=== PATIENT | female | born 1935 | race Caucasian/White ===

== ENCOUNTER 2017-10-20 11:01 | Emergency (ER) | payer OTHER, MEDICARE ==
[2017-10-20] MEDS ORDERED: HYDROmorphONE/DILAUDID 2 MG/ML INJ IVP ONE (11:17)
[2017-10-20] MEDS ORDERED: NS 1,000 ML IV ONE ×2 (11:17→12:05)
[2017-10-20] MEDS ORDERED: ONDANSETRON 4 MG/2 ML VIAL IVP ONE (11:17)
--- NOTE | 2017-10-20 11:21 | EDPHY ---
H & P Time Seen by Provider: 10/20/17 11:13 HPI/ROS: CHIEF COMPLAINT: Right flank pain HISTORY OF PRESENT ILLNESS: Patient is an 82-year-old female who comes to the emergency department complaining of right flank pain. It begins in her right CVA and radiates to her right groin. She states that she has never felt pain like this before. It is constant but tends to increase and decrease in waves. She has not noticed any hematuria. No fever. It began gradually last night was severe this morning. She was having dry heaves but did not vomit. No diarrhea. No chest pain or shortness of breath. She does have a history of an abdominal aortic aneurysm. She also tells me that she does not know and does not wish to know much of her medical history because she prefers to leave it to her doctor. She moved here from [facility] 3 weeks ago. REVIEW OF SYSTEMS: Constitutional: denies: chills, fever, recent illness, recent injury EENTM: denies: blurred vision, double vision, nose congestion Respiratory: denies: cough, shortness of breath Cardiac: denies: chest pain, irregular heart rate, lightheadedness, palpitations Gastrointestinal/Abdominal: See HPI Genitourinary: denies: dysuria, frequency, hematuria, pain Musculoskeletal: denies: joint pain, muscle pain Skin: denies: lesions, rash, jaundice, bruising Neurological: denies: headache, numbness, paresthesia, tingling, dizziness, weakness Hematologic/Lymphatic: denies: blood clots, easy bleeding, easy bruising Immunologic/allergic: denies: HIV/AIDS, transplant EXAM: GENERAL: Well-appearing, well-nourished and in no acute distress. HEAD: Atraumatic, normocephalic. EYES: Pupils equal round and reactive to light, extraocular movements intact, sclera anicteric, conjunctiva are normal. ENT: TMs normal, nares patent, oropharynx clear without exudates. Moist mucous membranes. NECK: Normal range of motion, supple without lymphadenopathy or JVD. LUNGS: Breath sounds clear to auscultation bilaterally and equal. No wheezes rales or rhonchi. HEART: Regular rate and rhythm without murmurs, rubs or gallops. ABDOMEN: Soft, nontender, normoactive bowel sounds. No guarding, no rebound. No masses appreciated. BACK: No CVA tenderness, no spinal tenderness, step-offs or deformities EXTREMITIES: Normal range of motion, 1+ edema. No clubbing or cyanosis. NEUROLOGICAL: Cranial nerves II through XII grossly intact. Normal speech, normal gait. 5/5 strength, normal movement in all extremities, normal sensation PSYCH: Normal mood, normal affect. SKIN: Warm, dry, normal turgor, no visible rashes or lesions. Source: Patient Exam Limitations: No limitations - Medical/Surgical History Hx Asthma: No Hx Chronic Respiratory Disease: No Hx Diabetes: No Hx Cardiac Disease: No Hx Renal Disease: No Hx Cirrhosis: No Other PMH: Aortic aneurysm, hypertension, type 2 diabetes - Family History Significant Family History: No pertinent family hx - Social History Alcohol Use: Sober Drug Use: None Constitutional: Initial Vital Signs Temperature (C) 36.6 C 10/20/17 11:22 Heart Rate 71 10/20/17 11:22 Respiratory Rate 16 10/20/17 11:22 Blood Pressure 149/78 H 10/20/17 11:22 O2 Sat (%) 91 L 10/20/17 11:22 O2 Delivery Mode Room Air O2 (L/minute) 2 Allergies/Adverse Reactions: No Known Allergies Allergy (Unverified 10/20/17 11:29) Home Medications: Medication Instructions Recorded Atenolol 10/20/17 Digoxin 10/20/17 Hydrocodone/APAP 5/325 [[place] 1 - 2 tab PO Q4H PRN #10 tab 10/20/17 5/325] Nabumetone 10/20/17 Ondansetron Odt [Zofran Odt 4 mg 4 mg PO Q4 PRN #20 tab 10/20/17 (RX)] Repaglinide 10/20/17 Tamsulosin HCl [Flomax] 0.4 mg PO DAILY #10 cap 10/20/17 Medical Decision Making - Diagnostics Imaging Results: Imaging Impressions Abdomen/Pelvis CT 10/20/17 11:17 Impression: 1. 5 mm radiodense structure suggesting stone at the right ureterovesical junction with severe obstructive uropathy with probable forniceal rupture. 2. Infrarenal abdominal aortic aneurysm measuring up to 4.5 cm in maximal AP diameter. 3. Indeterminate left renal mass which could represent a proteinaceous/ hemorrhagic cyst or mass. Renal ultrasound could be performed for further evaluation. 4. Additional findings as above. Findings discussed with Vinod Andrade on 10/20/2017 at 1301 hours. Attention: This CT examination is specifically designed to evaluate patients who are clinically suspected of having acute obstructive uropathy. This examination does not use radiographic contrast and provides only a limited evaluation of the abdomen, pelvis and retroperitoneum. If there is further clinical suspicion for pathological conditions other than obstructive uropathy, a complete CT evaluation of the abdomen and pelvis utilizing intravenous and enteric contrast should be considered. Imaging: Discussed imaging studies w/ pre planning advisor Radiologist ED Course/Re-evaluation: 1:15 p.m. we discussed patient's CT and lab results. She is feeling much more comfortable. She is eager to go home. She has been hydrated. She is tolerating p.o.. I will prescribe her pain and nausea medications as well as Flomax. She is happy with this plan and declines further workup or testing. I will also have her follow up with Urology. We discussed straining her urine and testing stone. She was already aware of the aortic aneurysm and will compared to previous CT scans with her primary doctor medical. She is not sure about the left ovarian cyst versus mass and will ask her doctor about this as well. I recommended ultrasound within 1 month if it is new. Differential Diagnosis: Partial list of the Differential diagnosis considered include but were not limited to; kidney stone, urinary tract infection, aneurysm and although unlikely based on the history and physical exam, I also considered dissection, abscess. I discussed these differential diagnoses and the plan with the patient as well as the usual and expected course. The patient understands that the diagnosis is provisional and that in medicine we are not always correct and that further workup is often warranted. Usual and customary warnings were given. All of the patient's questions were answered. The patient was instructed to return to the emergency department should the symptoms at all worsen or return, otherwise to followup with the physician as we discussed. - Data Points Laboratory Results: Laboratory Results 10/20/17 12:03 10/20/17 10/20/17 12:03 11:46 WBC 10.86 10^3/uL H 10^3/uL (3.80-9.50) RBC 4.79 10^6/uL 10^6/uL (4.18-5.33) Hgb 15.5 g/dL g/dL (12.6-16.3) Hct 44.7 % % (38.0-47.0) MCV 93.3 fL fL (81.5-99.8) MCH 32.4 pg pg (27.9-34.1) MCHC 34.7 g/dL g/dL (32.4-36.7) RDW 13.3 % % (11.5-15.2) Plt Count 210 10^3/uL 10^3/uL (150-400) MPV 10.5 fL fL (8.7-11.7) Neut % (Auto) 79.6 % H % (39.3-74.2) Lymph % (Auto) 15.0 % % (15.0-45.0) [place] % (Auto) 4.0 % L % (4.5-13.0) Eos % (Auto) 0.4 % L % (0.6-7.6) Baso % (Auto) 0.6 % % (0.3-1.7) Nucleat RBC Rel Count 0.0 % % (0.0-0.2) Absolute Neuts (auto) 8.65 10^3/uL H 10^3/uL (1.70-6.50) Absolute Lymphs (auto) 1.63 10^3/uL 10^3/uL (1.00-3.00) Absolute Monos (auto) 0.43 10^3/uL 10^3/uL (0.30-0.80) Absolute Eos (auto) 0.04 10^3/uL 10^3/uL (0.03-0.40) Absolute Basos (auto) 0.07 10^3/uL 10^3/uL (0.02-0.10) Absolute Nucleated RBC 0.00 10^3/uL 10^3/uL (0-0.01) Immature Gran % 0.4 % % (0.0-1.1) Immature Gran # 0.04 10^3/uL 10^3/uL (0.00-0.10) POC Sodium 142 mEq/L mEq/L (135-145) POC Potassium 4.5 mEq/L mEq/L (3.3-5.0) POC Chloride 103.0 mEq/L mEq/L (97-110) POC Total CO2 27 mEq/L mEq/L (22-31) POC BUN 14 mg/dL mg/dL (7-23) POC Creatinine 1.5 mg/dL H mg/dL (0.6-1.0) POC Glucose 159 mg/dL H mg/dL (70-100) POC Calcium 10.0 mg/dL mg/dL (8.5-10.4) POC Total Bilirubin 0.7 mg/dL mg/dL (0.1-1.4) POC AST 50 IU/L H IU/L (14-46) POC ALT 31 IU/L IU/L (9-52) POC Alk Phosphatase 65 IU/L IU/L (38-126) POC Total Protein 8.1 g/dL g/dL (6.3-8.2) POC Albumin 3.9 g/dL g/dL (3.5-5.0) Medications Given: Discontinued Medications Hydromorphone HCl (Dilaudid) 0.5 mg IVP EDNOW ONE Stop: 10/20/17 11:18 Last Admin: 10/20/17 12:09 Dose: 0.5 mg Sodium Chloride (Ns) 1,000 mls @ 0 mls/hr IV EDNOW ONE; Wide Open PRN Reason: Protocol Stop: 10/20/17 12:06 Last Admin: 10/20/17 12:00 Dose: 1,000 mls Ondansetron HCl (Zofran) 4 mg IVP EDNOW ONE Stop: 10/20/17 11:18 Last Admin: 10/20/17 12:09 Dose: 4 mg Tamsulosin HCl (Flomax) 0.4 mg PO EDNOW ONE Stop: 10/20/17 13:20 Last Admin: 10/20/17 13:33 Dose: 0.4 mg Point of Care Test Results: Chemistry 10/20/17 11:46 POC Sodium 142 mEq/L mEq/L (135-145) POC Potassium 4.5 mEq/L mEq/L (3.3-5.0) POC Chloride 103.0 mEq/L mEq/L (97-110) POC Total CO2 27 mEq/L mEq/L (22-31) POC BUN 14 mg/dL mg/dL (7-23) POC Creatinine 1.5 mg/dL H mg/dL (0.6-1.0) POC Glucose 159 mg/dL H mg/dL (70-100) POC Calcium 10.0 mg/dL mg/dL (8.5-10.4) POC Total Bilirubin 0.7 mg/dL mg/dL (0.1-1.4) POC AST 50 IU/L H IU/L (14-46) POC ALT 31 IU/L IU/L (9-52) POC Alk Phosphatase 65 IU/L IU/L (38-126) POC Total Protein 8.1 g/dL g/dL (6.3-8.2) POC Albumin 3.9 g/dL g/dL (3.5-5.0) Urine Dip Collection Date 10/20/17 Collection Time 11:39 Specific [place] (1.002-1.030) 1.020 PH (5.0-7.5) 7.5 Leukocytes (Negative) 1+ Nitrites (Negative) Negative Protein (Negative) 2+ Glucose (Negative) Negative Ketones (Negative) Negative Urobilnogen (0.2-1.0 EU) 0.2 Bilirubin (Negative) Negative Blood (Negative) Trace Departure - Departure Disposition: Home, Routine, Self-Care Clinical Impression: Kidney stone on right side Condition: Fair Instructions: Kidney Stones (ED) Additional Instructions: You have a 5 mm stone on the right side. Strain urine to see if he can catch it and taken to the urologist. You also have a 2 cm cyst versus mass on your left kidney that will need follow-up ultrasound as discussed. Referrals: NONE *PRIMARY CARE P,. [Primary Care Provider] - As per Instructions Los Plasencia MD [Medical Doctor] - As per Instructions Gianfranco Antunez MD [Medical Doctor] - As per Instructions Prescriptions: Hydrocodone/APAP 5/325 [[place] 5/325] 1 - 2 tab PO Q4H PRN #10 tab PRN Reason: Pain, Moderate Ondansetron Odt [Zofran Odt 4 mg (RX)] 4 mg PO Q4 PRN #20 tab PRN Reason: Nausea & Vomiting Tamsulosin HCl [Flomax] 0.4 mg PO DAILY #10 cap
[2017-10-20 13:10] LABS: PLATELET COUNT 210 10^3/uL (150-400)
[2017-10-20] MEDS ORDERED: TAMSULOSIN HCL 0.4 MG CAP PO ONE (13:19)
[2017-10-20 13:59] VITALS: BP 111/56
== END 2017-10-20 14:00 | disposition home or self-care (01) ==
LOC: CED 11:01
DX: N20.0 Calculus of kidney (principal); E86.9 Volume depletion, unspecified; E11.9 Type 2 diabetes mellitus without complications; I10 Essential (primary) hypertension
CPT/HCPCS: 74176; 96361; 96374; 96375; 99285; J1170; J2405; 80053-PO

== ENCOUNTER → 2018-01-08 | Outpatient (CLI) | payer OTHER, MEDICARE | LOC: BHFA 08:30 | PROVIDERS: ATTEND Internal Medicine Cardiovascular Disease | DX: Z01.810 Encounter for preprocedural cardiovascular examination (principal); I25.10 Atherosclerotic heart disease of native coronary artery without angina pectoris | CPT/HCPCS: 78452; 93017; 93306; A9500; J2785 ==

== ENCOUNTER 2018-01-24 09:56 | Observation (INO) | payer OTHER, MEDICARE ==
[2018-01-24] MEDS ORDERED: DIAZEPAM 5 MG TAB PO ONE (10:00)
[2018-01-24] MEDS ORDERED: diphenhydrAMINE 25 MG CAP PO ONE (10:00)
[2018-01-24] MEDS ORDERED: FAMOTIDINE 20 MG TAB PO ONE (10:00)
[2018-01-24] MEDS ORDERED: ASPIRIN EC 325 MG TAB PO ONE (10:00)
[2018-01-24] MEDS ORDERED: NS 1,000 ML IV ONE (10:00)
[2018-01-24 10:40] LABS: PLATELET COUNT 205 10^3/uL (150-400)
[2018-01-24] MEDS ORDERED: LIDOCAINE 1% 300 MG/30 ML SDV ONE (10:45)
[2018-01-24] MEDS ORDERED: fentaNYL 100 MCG/2 ML INJ ONE (10:46)
[2018-01-24] MEDS ORDERED: MIDAZOLAM 2 MG/2 ML VIAL ONE (10:46)
[2018-01-24] MEDS ORDERED: IOPAMIDOL (ISOVUE-370) 150 ML BTL IV ONE (10:46)
[2018-01-24 10:49] LABS: INR 1.03 (0.83-1.16); PROTIME(PATIENT) 13.7 SEC (12.0-15.0)
[2018-01-24] MEDS ORDERED: CLOPIDOGREL BISULFATE 75 MG TAB ONE (11:20)
[2018-01-24] MEDS ORDERED: BIVALIRUDIN 250 MG/5 ML VIAL IV ONE (11:48)
[2018-01-24] MEDS ORDERED: ATROPINE SULFATE 1 MG/10 ML SYR ONE (12:00)
[2018-01-24] MEDS ORDERED: NITROGLYCERIN 1,500 MCG/15 ML VIAL MISC ONE (12:00)
[2018-01-24] MEDS ORDERED: EPINEPHrine 1 MG/10 ML SYR IVP ONE (12:00)
[2018-01-24] MEDS ORDERED: ONDANSETRON 4 MG/2 ML VIAL IVP PRN (12:45)
[2018-01-24] MEDS ORDERED: LORazepam 2 MG/ML INJ IVP PRN (12:45)
[2018-01-24] MEDS ORDERED: OXYCODONE/APAP 5/325 TAB PO PRN (12:45)
[2018-01-24] MEDS ORDERED: HYDROCODONE/APAP 5/325 TAB PO PRN (12:45)
[2018-01-24] MEDS ORDERED: NITROGLYCERIN 0.4 MG BTL SL PRN (12:45)
[2018-01-24] MEDS ORDERED: TEMAZEPAM 15 MG CAP PO PRN (12:45)
[2018-01-24] MEDS ORDERED: ATROPINE SULFATE 1 MG/10 ML SYR IVP PRN (12:45)
[2018-01-24] MEDS ORDERED: ACETAMINOPHEN/ASA/CAFFEINE 1 EACH TAB PO PRN (12:48)
--- NOTE | 2018-01-24 13:37 | CPIP ---
DATE OF PROCEDURE: 01/24/2018 INDICATIONS FOR PROCEDURE: Positive stress test, chest pain. PROCEDURES: 1. Nonselective right groin sheathogram. 2. Selective coronary angiography and left heart catheterization with left ventriculogram. 3. Percutaneous intervention of mid LAD utilizing Synergy 2.5 x 38 mm drug-eluting stent and 3.0 x 1 6 mm drug-eluting stent. HISTORY: Briefly, this is an 82-year-old female with history of recent chest pain. The patient had a positive stress test and worsening anginal like symptoms as an outpatient. At this time, the patie nt consented for cardiac catheterization. DESCRIPTION OF PROCEDURE: After informed consent was obtained, the patient was brought to [facility] where the right groin was prepped and draped in sterile fashion. Using lidocaine, a s hort 6-Wolof sheath in the right common femoral artery verified angiographically. Through this 6-Fr ench sheath, a JL4 catheter was advanced to left coronary artery. Images of the left coronary artery revealed normal left main. Left circumflex had mild 20% to 30% plaque disease with small marginal 1 artery coming off proximally. The distal marginal circumflex artery terminates to a marginal 2 ann ry which had 30% disease in its midportion. The LAD was a long vessel which had subtotal occlusion i n its midportion with [id number] collateralization. There was a moderate to large diagonal artery coming off proximally which had mild plaque disease in its course. The distal LAD, however, appeared to be patent and free of disease. After the images were obtained, the JR4 catheter was removed. A JR4 catheter was advanced to the right coronary artery. Images of the right coronary artery revealed normal ostial RCA with slightly angulated takeoff. There was 30% to 40% disease in its proximal mid portion of the RCA. The distal RPD and RPLS had mild plaque disease but no significant obstruction. After images were obtained, the JR4 catheter was then removed. The pigtail catheter was advanced t o the left ventricle LVEDP 15 mmHg. Left ventriculogram in the OVIEDO position showed EF of 65% with no wall motion abnormalities. There was no gradient between the LV and the aorta. Pigtail catheter wa s then removed over an 0.035 wire. Intervention report at this time, the patient has been administer ed 600 mg Plavix p.o. and started on Angiomax bolus and drip. Utilizing the EBU 3.5 guide catheter, left coronary artery selectively engaged. We decided that the LAD appeared to be a subtotal [employer]IST. Th us, we would use a 300 cm Fielder XT wire as our initial choice. The Fielder wire was then advanced and through careful manipulation was carefully able to manipulate through the lesion and placed dista l in the LAD. Once this was performed and confirmed angiographically, we then placed 2.0 x 12 balloo n was then advanced and was placed into the proximal portion of the lesion and inflated to 12 atmosph eres. After deflation this was then gently advanced again through some effort into the proximal mid portion of the vessel and inflated to 12 atmospheres. This was then advanced 1 more time further to this area and inflated to 12 atmospheres. After this performed, the balloon was then deflated and wi thdrawn and angiographic images were obtained, which showed improved patency to the LAD. We instead decided to utilize a 2.5 x 15 balloon then with multiple sequential inflations across the LAD lesion starting at the distal point of the lesion back into the proximal portion of the mid LAD. Multiple s equential inflations of 12-14 atmospheres occurred across this area. After this was performed, angio graphy was obtained, which show excellent patency of the balloon of the PTCA area. We decided to pro ceed with stenting this vessel then with a Synergy 2.5 x 38 mm drug-eluting stent. This was deployed successfully in the mid distal LAD at 14 atmospheres. After deployment, we then proceeded with plac ement of 3.0 x 16 Synergy drug-eluting stent in an overlap fashion in the proximal mid LAD. After th is was performed, the 3.0 x 16 balloon was then utilized to post dilate all the overlapped area as we ll as the mid distal area of the 38 stent. After this was performed, angiography was obtained, which were obtained after 200 mcg of nitroglycerin were given, which showed excellent patency of the stent ed regions with no evidence of dissection or perforation. The wire was pulled back. The guide missy ter was removed. The guidewire in the right groin was sutured in place. Patient tolerated the proce dure well with no complications. IMPRESSION: 1. Successful percutaneous intervention of subtotaled mid LAD occlusion. 2. Mild noncritical disease of the circumflex and right coronary artery. 3. Normal ejection fraction. PLAN: The patient will have her sheath DC'd 2 hours time. She will be admitted overnight. If clini ar stable, will be discharged within 24 hours on aspirin products. /[id number]/MODL
--- NOTE | 2018-01-24 15:21 | CPEKG ---
Test Reason : OPEN Blood Pressure : / mmHG Vent. Rate : 050 BPM Atrial Rate : 050 BPM P-R Int : 231 ms QRS Dur : 084 ms QT Int : 397 ms P-R-T Axes : -58 -66 019 degrees QTc Int : 362 ms Sinus or ectopic atrial rhythm Prolonged NV interval Left atrial enlargement Left ventricular hypertrophy Inferior infarct, old Anterior infarct, old Confirmed by Master Duque ([id number]) on 01/24/2018 3:20:41 PM Referred By: Confirmed By:Master Duque
--- NOTE | 2018-01-24 15:23 | CPEKG ---
Test Reason : OPEN Blood Pressure : / mmHG Vent. Rate : 042 BPM Atrial Rate : 042 BPM P-R Int : 283 ms QRS Dur : 091 ms QT Int : 451 ms P-R-T Axes : -60 -60 -01 degrees QTc Int : 377 ms Sinus or ectopic atrial bradycardia Prolonged TN interval Probable left atrial enlargement lahb poor r wave progression Confirmed by Master Duque ([id number]) on 01/24/2018 3:23:16 PM Referred By: Confirmed By:Master Duque
[2018-01-24] MEDS ORDERED: NABUMETONE 500 MG TAB PO SCH (21:00)
[2018-01-24] MEDS: ASCORBIC ACID 500 MG TAB PO SCH (23:10)
[2018-01-25 03:40] LABS: PLATELET COUNT 187 10^3/uL (150-400)
--- NOTE | 2018-01-25 07:08 | PDCARPN ---
Cardiology Progress Note Chief Complaint: CP Assessment/Plan: Assessment: CP +stress test 90% LAD disease treated with PCI Plan: 01/25/18 07:06 Doing well No CP d/c home with plavix/ASA f/u 1-2 weeks outpatient CTA of AAA 01/25/18 07:07 Subjective: doing well Reviewed/Discussed With: multidisciplinary team Time Spent with Patient: greater than 25 minutes Time Spent with Patient: Greater than 25 minutes spent on this patients care, greater than 50% of time spent counseling, educating, and coordinating care regarding the above mentioned plan. Objective: Vital Signs (8 Hrs) Temp Pulse Resp BP Pulse Ox 01/25/18 03:22 36.9 C 65 16 117/65 92 01/24/18 23:18 37.1 C 63 16 146/71 H 93 Intake/Output (24 Hrs) 01/24/18 01/25/18 01/26/18 05:59 05:59 05:59 Intake Total 150 Output Total 400 Balance -250 Intake: Oral (ml) 150 Output: Urine (ml) 400 Bedpan 400 Other: Weight 72.6 kg Number of Voids Toilet 2 Result Diagrams: 01/25/18 03:01 01/25/18 03:01 - Physical Exam Constitutional: healthy appearing Eyes: PERRL Ears, Nose, Mouth, Throat: moist mucous membranes Cardiovascular: regular rate and rhythm Peripheral Pulses: 1+: femoral (R), femoral (L) Respiratory: clear to auscultate bilat Gastrointestinal: normoactive bowel sounds Genitourinary: no suprapubic tenderness Skin: no rashes Musculoskeletal: no muscular tenderness Neurologic: AAOx3 Psychiatric: cooperative ICD10 Worksheet Patient Problems: Problems Problem Status Onset Angina at rest Acute CAD (coronary artery disease), [place] coronary artery Acute - ICD10 Problem Qualifiers (1) Angina at rest (2) CAD (coronary artery disease), [place] coronary artery Qualifiers: [place] vs. transplanted heart: [place] heart Associated angina: with stable angina Qualified Code(s): I25.118 - Atherosclerotic heart disease of [place] coronary artery with other forms of angina pectoris
--- NOTE | 2018-01-25 07:21 | GDS ---
DIAGNOSIS: Coronary artery disease. HOSPITAL COURSE: Briefly, this is an 82-year-old female with a history of worsening chest pain as an outpatient who had a stress test, which was positive for ischemia. The patient underwent cardiac ca theterization, which showed 90% subtotal mid LAD. The patient underwent successful PCI of this vesse l with 2 drug-eluting stents. Postprocedure, the patient has done very well, has been denying any ch est pain. She has been ambulating without problems. The patient will be discharged home catherine elmore with her home medications including aspirin and Plavix. She will follow up with our office in 1-2 weeks' time. /[id number]/MODL
[2018-01-25] MEDS ORDERED: Herbals/Supplements -Info Only PO SCH (09:00)
[2018-01-25] MEDS ORDERED: ATENOLOL 50 MG TAB PO SCH (09:00)
[2018-01-25] MEDS: ASCORBIC ACID 500 MG TAB PO SCH ×2 (09:31→11:03)
[2018-01-25] MEDS: ASPIRIN EC 81 MG TAB PO SCH ×2 (09:31→11:03)
[2018-01-25] MEDS: PYRIDOXINE HCL 100 MG TAB PO SCH ×2 (09:31→11:03)
[2018-01-25] MEDS: CLOPIDOGREL BISULFATE 75 MG TAB PO SCH ×2 (09:31→11:02)
[2018-01-25] MEDS: MULTIVITAMINS 1 EACH TAB PO SCH ×2 (09:31→11:03)
[2018-01-25] MEDS ORDERED: DIGOXIN 250 MCG TAB PO SCH (10:00)
[2018-01-25 12:36] VITALS: BP 143/69
== END 2018-01-25 13:22 | disposition home or self-care (01) ==
LOC: FCATH 09:56 → F2W 12:45
PROVIDERS: ADMIT Internal Medicine Cardiovascular Disease; ATTEND Internal Medicine Cardiovascular Disease
PROC: B2151ZZ Fluoroscopy of Left Heart using Low Osmolar Contrast (ICD-10-PCS; principal; 2018-01-24)
PROC: 027034Z Dilation of Coronary Artery, One Artery with Drug-eluting Intraluminal Device, Percutaneous Approach (ICD-10-PCS; principal; 2018-01-24)
PROC: B2111ZZ Fluoroscopy of Multiple Coronary Arteries using Low Osmolar Contrast (ICD-10-PCS; principal; 2018-01-24)
PROC: 4A023N7 Measurement of Cardiac Sampling and Pressure, Left Heart, Percutaneous Approach (ICD-10-PCS; principal; 2018-01-24)
DX: I25.119 Atherosclerotic heart disease of native coronary artery with unspecified angina pectoris (principal)
CPT/HCPCS: 93005; 93458; C1725; C1769; C1874; C1887; C9607; J0583; J1644; J2250; J3010; Q9967; J0461

== ENCOUNTER 2018-03-28 15:43 | Emergency (ER) | payer OTHER, MEDICARE ==
--- NOTE | 2018-03-28 16:04 | EDPHY ---
H & P Time Seen by Provider: 03/28/18 15:51 HPI/ROS: CHIEF COMPLAINT: Chest pain HISTORY OF PRESENT ILLNESS: The patient is an 82-year-old female who comes to the emergency department complaining of sharp chest pain that she has had since January. She states that in January she had [address] Duque. Ever since that time she has had sharp chest pain. She is on digoxin and Plavix and aspirin. She noticed yesterday that the pain radiated up to her left anterior neck. It is not done this before. Today that symptom has resolved. She denies shortness of breath. No nausea vomiting. No diaphoresis. It is not worsened by exertion. She was at rest when the symptoms worsened yesterday. They persisted for about 8 hr until she went to bed and this morning she was back to her baseline pain. She does have AAA that is being monitored. She had a annual CT scan Sunday that revealed that it is stable at 4.6 cm. No abdominal pain. No pulsatile mass. No tearing or ripping sensation. Severity: Moderate Modifying factors: None REVIEW OF SYSTEMS: Constitutional: denies: chills, fever, recent illness, recent injury EENTM: denies: blurred vision, double vision, nose congestion Respiratory: denies: cough, shortness of breath Cardiac: See HPI Gastrointestinal/Abdominal: denies: abdominal pain, diarrhea, nausea, vomiting, blood streaked stools Genitourinary: denies: dysuria, frequency, hematuria, pain Musculoskeletal: denies: joint pain, muscle pain Skin: denies: lesions, rash, jaundice, bruising Neurological: denies: headache, numbness, paresthesia, tingling, dizziness, weakness Hematologic/Lymphatic: denies: blood clots, easy bleeding, easy bruising Immunologic/allergic: denies: HIV/AIDS, transplant 10 systems reviewed and negative except as noted EXAM: GENERAL: Well-appearing, joking, sarcastic, well-nourished and in no acute distress. HEAD: Atraumatic, normocephalic. EYES: Pupils equal round and reactive to light, extraocular movements intact, sclera anicteric, conjunctiva are normal. ENT: TMs normal, nares patent, oropharynx clear without exudates. Moist mucous membranes. NECK: Normal range of motion, supple without lymphadenopathy or JVD. LUNGS: Breath sounds clear to auscultation bilaterally and equal. No wheezes rales or rhonchi. HEART: Regular rate and rhythm without murmurs, rubs or gallops. ABDOMEN: Soft, nontender, normoactive bowel sounds. No guarding, no rebound. No masses appreciated. BACK: No CVA tenderness, no spinal tenderness, step-offs or deformities EXTREMITIES: Normal range of motion, no pitting or edema. No clubbing or cyanosis. NEUROLOGICAL: Cranial nerves II through XII grossly intact. Normal speech, normal gait. 5/5 strength, normal movement in all extremities, normal sensation , normal reflexes PSYCH: Normal mood, normal affect. SKIN: Warm, dry, normal turgor, no visible rashes or lesions. Source: Patient Exam Limitations: No limitations - Medical/Surgical History Hx Asthma: No Hx Chronic Respiratory Disease: No Hx Diabetes: No Hx Cardiac Disease: No Hx Renal Disease: No Hx Cirrhosis: No Hx Alcoholism: No Hx HIV/AIDS: No Hx Splenectomy or Spleen Trauma: No Other PMH: Coronary artery disease, stents x2, Aortic aneurysm, hypertension, kidney stones - Family History Significant Family History: No pertinent family hx - Social History Smoking Status: Current every day smoker Alcohol Use: Sober Drug Use: None Constitutional: Initial Vital Signs Temperature (C) 36.5 C 03/28/18 15:50 Heart Rate 54 L 03/28/18 15:50 Respiratory Rate 20 03/28/18 15:50 Blood Pressure 147/77 H 03/28/18 15:50 O2 Sat (%) 96 03/28/18 15:50 O2 Delivery Mode Room Air Allergies/Adverse Reactions: No Known Allergies Allergy (Verified 03/29/18 11:00) Home Medications: Medication Instructions Recorded Acetaminophen/ASA/Caffeine 1 each PO DAILY PRN 01/23/18 [Excedrin Tablet (*)] Ascorbic Acid [Vitamin C 500 mg 500 mg PO BID 01/23/18 (*)] Atenolol [Tenormin 50 mg (*)] 50 mg PO DAILY 01/23/18 Digoxin [Lanoxin 250 mcg (RX)] 250 mcg PO DAILY10 01/23/18 Herbals/Supplements -Info Only 1 ea PO DAILY 01/23/18 Multivitamins [Multivitamin (*)] 1 each PO DAILY 01/23/18 Nabumetone [Relafen 500 mg (*)] 500 mg PO HS 01/23/18 Pyridoxine HCl [Vitamin B-6 100 mg 100 mg PO DAILY 01/23/18 (*)] rOPINIRole HCL [Requip 1mg (*)] 1 mg PO HS 01/23/18 Aspirin EC [Aspirin EC 81 mg (*)] 81 mg PO DAILY tab 01/25/18 Clopidogrel Bisulfate [Plavix (*)] 75 mg PO DAILY #30 tab 01/25/18 Rosuvastatin Calcium [Crestor] 03/28/18 Magnesium 03/29/18 Medical Decision Making - Diagnostics EKG Interpretation: An EKG obtained and was read and documented in trace view. Please see trace view for full reading and report. Sinus rhythm, no acute ischemic changes Imaging: Discussed imaging studies w/ grain commodity manager Radiologist ED Course/Re-evaluation: 5:[address] Calderon who evaluated the patient prior to the ER. He came by and reviewed the test results and spoke to the patient. He is in agreement that she can be discharged safely at this point from a cardiac standpoint. She will follow up with his clinic. 5:30 p.m. the patient's D-dimer has failed to result twice. We will sent to [facility]. I have a low suspicion for PE considering the duration of her symptoms. The patient does not wish to wait and wishes to go home. She understands the risks and benefits. We will call her with results. she understands that if it is positive I want her to come back for CT scan. She is not tachycardic or hypoxic which is reassuring. She is adamant about going home. 8:00 p.m. the patient's D-dimer has finally returned and is positive. There was significant delay because our point of care test failed twice and then there was a 2 hr delay waiting for a keno attendant. The patient eventually left A because she was waiting for the delivery of a washer and dryer. I spoke with her on the phone just now notified her that her test is positive and recommended she come back here for a CT angiogram. She states that she feels at her baseline health currently. She did agree to return. 9:00 p.m. I spoke with the patient again. She is worried about driving here at night. I encouraged her to get a taxi or have some one drive her but that I think it is important she have her test done tonight. She would prefer to wait till morning. We discussed risks and benefits of waiting. He is reassuring that she has had the symptoms for several months however her symptoms did seem worse yesterday. She is capable of making her own medical decisions and we discussed the risks and benefits thoroughly. I again emphasized that for her safety she should come back tonight have the testing done. Differential Diagnosis: Partial list of the Differential diagnosis considered include but were not limited to; chest wall pain, pleurisy, acute coronary disease and although unlikely based on the history and physical exam, I also considered pneumonia, dissection, PE. I discussed these differential diagnoses and the plan with the patient as well as the usual and expected course. The patient understands that the diagnosis is provisional and that in medicine we are not always correct and that further workup is often warranted. Usual and customary warnings were given. All of the patient's questions were answered. The patient was instructed to return to the emergency department should the symptoms at all worsen or return, otherwise to followup with the physician as we discussed. - Data Points Point of Care Test Results: CBC CBC Collection Date 03/28/18 CBC Collection Time 16:15 WBC 8.8 RBC 4.66 HGB 15.3 HCT 44.2 PLT 210 Neut # 4.4 Neut 50.2 LYMPH # 3.6 LYMPH 41.0 Other WBC # 0.8 Other WBC 8.8 MCV 94.8 Chemistry 03/28/18 03/28/18 16:25 16:23 POC Total Bilirubin 0.7 mg/dL mg/dL (0.1-1.4) POC GGT 17 IU/L IU/L (5-65) POC AST 34 IU/L IU/L (14-46) POC ALT 17 IU/L IU/L (9-52) POC Alk Phosphatase 82 IU/L IU/L (38-126) POC Troponin I 0.02 ng/mL ng/mL (0.00-0.08) POC Total Protein 6.7 g/dL g/dL (6.3-8.2) POC Albumin 3.5 g/dL g/dL (3.5-5.0) POC Amylase 46 IU/L IU/L (30-110) Liver Function Tests LFT Collection Date 03/28/18 LFT Collection Time 16:15 Departure - Departure Disposition: Home, Routine, Self-Care Clinical Impression: Chest pain Qualifiers: Chest pain type: unspecified Qualified Code(s): R07.9 - Chest pain, unspecified Condition: Fair Instructions: Chest Pain (ED) Referrals: Los Plasencia MD [Primary Care Provider] - As per Instructions Al Calderon MD [Medical Doctor] - 2-3 days, if not improved
[2018-03-28 17:57] VITALS: BP 138/68
== END 2018-03-28 17:38 | disposition home or self-care (01) ==
LOC: CED 15:43
DX: J18.9 Pneumonia, unspecified organism (principal); I25.10 Atherosclerotic heart disease of native coronary artery without angina pectoris; I10 Essential (primary) hypertension; F17.200 Nicotine dependence, unspecified, uncomplicated
CPT/HCPCS: 71046-PO; 80076-PO; 82150-PO; 84484-PO

== ENCOUNTER 2018-03-29 10:51 | Emergency (ER) | payer OTHER, MEDICARE ==
[2018-03-29] MEDS ORDERED: ONDANSETRON 4 MG/2 ML VIAL IVP ONE (11:29)
--- NOTE | 2018-03-29 12:05 | EDPHY ---
H & P Time Seen by Provider: 03/29/18 10:53 HPI/ROS: CHIEF COMPLAINT: Shortness of breath History by patient HISTORY OF PRESENT ILLNESS: 82-year-old woman with history of abdominal aortic aneurysm and coronary artery disease with recent stent placement was sting 2 days ago for chest pain and shortness of breath and had extensive workup in evaluated by her tug boat engineer in the ED. She was discharged home with D-dimer pending because she did not want to stay to wait for the test. She was called back because this was positive and it was felt that she was at risk for pulmonary embolism. Patient returns today because of this. She continues to have shortness of breath, and feeling like she can't get enough air which happens both with exertion and at rest. She is denying any chest pain to me today. She denies any leg swelling. She sometimes has a cough when she lays down flat to go to sleep at night. The cough is nonproductive and nonpainful. She continues to take her Plavix and aspirin. REVIEW OF SYSTEMS: As in HPI, and all other systems reviewed and are negative Smoking Status: Heavy smoker Physical Exam: General Appearance: Alert, comfortable, no respiratory distress Head: normocephalic, atraumatic Eyes: Pupils equal and round, reactive to light, no pallor or injection. Mouth: Mucous membranes moist. Oropharynx clear Neck: No bony tenderness, full range of motion Respiratory: Normal, effort, lungs are clear to auscultation. No wheezes, few scant rales at bases, no rhonchi. Cardiovascular: Regular rate and rhythm. S1, S2, no murmurs, gallops or rubs appreciated Gastrointestinal: Abdomen is soft and nontender, no masses, bowel sounds normal. Back: No CVA tenderness, no bony tenderness Neurological: Awake, alert and oriented x 3, cranial nerves 2-12 intact, no pronator drift, normal gait, Skin: Warm and dry, no rashes. Musculoskeletal: No deformities or tenderness. Extremities: full range of motion, trace left greater than right pitting edema, DP2+ bilat Psychiatric: Patient has normal affect, there is no agitation. Constitutional: Initial Vital Signs Heart Rate 60 03/29/18 11:00 Respiratory Rate 18 03/29/18 11:00 Blood Pressure 116/58 L 03/29/18 11:00 O2 Sat (%) 94 03/29/18 11:00 O2 Delivery Mode Room Air Allergies/Adverse Reactions: No Known Allergies Allergy (Verified 03/29/18 11:00) Home Medications: Medication Instructions Recorded Acetaminophen/ASA/Caffeine 1 each PO DAILY PRN 01/23/18 [Excedrin Tablet (*)] Ascorbic Acid [Vitamin C 500 mg 500 mg PO BID 01/23/18 (*)] Atenolol [Tenormin 50 mg (*)] 50 mg PO DAILY 01/23/18 Digoxin [Lanoxin 250 mcg (RX)] 250 mcg PO DAILY10 01/23/18 Herbals/Supplements -Info Only 1 ea PO DAILY 01/23/18 Multivitamins [Multivitamin (*)] 1 each PO DAILY 01/23/18 Nabumetone [Relafen 500 mg (*)] 500 mg PO HS 01/23/18 Pyridoxine HCl [Vitamin B-6 100 mg 100 mg PO DAILY 01/23/18 (*)] rOPINIRole HCL [Requip 1mg (*)] 1 mg PO HS 01/23/18 Aspirin EC [Aspirin EC 81 mg (*)] 81 mg PO DAILY tab 01/25/18 Clopidogrel Bisulfate [Plavix (*)] 75 mg PO DAILY #30 tab 01/25/18 Rosuvastatin Calcium [Crestor] 03/28/18 Magnesium 03/29/18 MDM/Departure - MDM Imaging Results: Imaging Impressions Chest/Thorax CTA 03/29/18 11:59 Impression: 1. No evidence of pulmonary embolus using CT protocol. 2. Scattered atherosclerotic calcified plaques at the aortic arch level. Incidental coronary stent along the LAD. 3. Stable fibrotic streak left base posterior laterally. 4. Stable 17 mm increased density smooth hemorrhagic or proteinaceous cyst off the upper pole left kidney posteriorly. Solid nodules felt to be possible but less likely. Findings discussed with Yoselin You MD at 13:12 hour, 03/29/2018. Imaging: Discussed imaging studies w/ call center director Radiologist Medications Given: Discontinued Medications Ondansetron HCl (Zofran) 4 mg IVP EDNOW ONE Stop: 03/29/18 11:30 Last Admin: 03/29/18 11:48 Dose: Not Given ED Course/Re-evaluation: 82-year-old woman returns to ED for CT angiogram of the chest to evaluate for pulmonary embolism given the recent D-dimer chest during workup 2 days ago for shortness of breath. Here the patient is hemodynamically stable and no evidence of hypoxia. CT scan was obtained which showed no evidence of pulmonary embolism per the radiology. I did discuss with the patient the need to follow up with her primary care physician and tug boat engineer. I suspect her atenolol and possibly intermittent bradycardia are contributing to her symptoms. Patient and daughter understand agreeable to this plan. - Depart Disposition: Home, Routine, Self-Care Clinical Impression: Dyspnea Qualifiers: Dyspnea type: unspecified Qualified Code(s): R06.00 - Dyspnea, unspecified Condition: Good Instructions: Shortness of Breath (ED) Additional Instructions: You were seen by Dr. Yoselin You today. Your CT scan showed no evidence of pulmonary embolism (blood clot). At this time the cause of her symptoms is unclear but we have found no serious heart or lung cause on your recent visits. Please follow up with her primary care physician and your tug boat engineer as scheduled. Return for any worsening or new concerns. Referrals: Los Plasencia MD [Primary Care Provider] - As per Instructions
[2018-03-29] MEDS ORDERED: IOPAMIDOL (ISOVUE 370) 100 ML BTL IV ONE (12:30)
[2018-03-29 13:52] VITALS: BP 127/77
== END 2018-03-29 13:52 | disposition home or self-care (01) ==
LOC: CED 10:51
DX: R06.00 Dyspnea, unspecified (principal); Z98.890 Other specified postprocedural states; Z86.79 Personal history of other diseases of the circulatory system
CPT/HCPCS: 71275; 96374; 99285; Q9967; 82435-PO; 82565-PO; 82947-PO; 84132-PO; 84295-PO; 84520-PO; 85014-PO